=== PATIENT | male | born 1965 | race Caucasian/White ===

== ENCOUNTER → 2021-11-26 | Outpatient (CLI) | payer OTHER ==
[~2021-11-26] MED LIST: ALPR0.5T3 PO; BACL1TAB9 PO; BUPR150T12 PO; DULO1CAP6 PO; DULO30CA9 PO; GABA600T4 PO
== END ==
LOC: M LABSMTC 10:11
PROVIDERS: ATTEND Anesthesiology
DX: Z01.818 Encounter for other preprocedural examination (principal); Z11.52 Encounter for screening for COVID-19

== ENCOUNTER 2021-11-29 06:16 | Day surgery (SDC) | payer MEDICARE ==
[~2021-11-29] VITALS: Ht 177.8 cm; Wt 66.7 kg
[2021-11-29] MEDS ORDERED: ceFAZolin SOD 2 GM in IV 1 EA IV ONE (06:30)
[2021-11-29] MEDS ORDERED: LR 1,000 ML IV SCH ×2 (06:40→08:30)
[2021-11-29] MEDS ORDERED: LIDOCAINE 2% W/EPINEPHRINE 20ML VIAL **PRES FREE As Ordered ONE (07:11)
[2021-11-29] MEDS ORDERED: BACITRACIN OINTMENT 30GM TUBE As Ordered ONE (07:11)
[2021-11-29] MEDS ORDERED: MIDAZOLAM INJ 2MG/2ML VIAL (J2250 PER 1MG) As Ordered ONE (07:14)
[2021-11-29] MEDS ORDERED: fentaNYL 100 MCG/2 ML INJECTION As Ordered ONE (07:16)
[2021-11-29] MEDS ORDERED: POVIDONE-IODINE 5% OPHTH PREP SOL 30ML As Ordered ONE (07:16)
[2021-11-29] MEDS ORDERED: propofoL 200 MG/20 ML VIAL As Ordered ONE (07:17)
[2021-11-29] MEDS ORDERED: LIDOCAINE 2% 100MG/5ML SDV (FOR ANES.) As Ordered ONE (07:21)
[2021-11-29] MEDS ORDERED: SUCCINYLCHOLINE 100 MG/5 ML SYRINGE (J0330) As Ordered ONE (07:41)
[2021-11-29] MEDS ORDERED: ROCURONIUM BROMIDE 50 MG/5 ML VIAL As Ordered ONE (07:41)
[2021-11-29] MEDS ORDERED: PHENYLephrine 500MCG 5ML (100MCG/ML) SYRINGE As Ordered ONE (08:09)
[2021-11-29] MEDS ORDERED: fentaNYL 100 MCG/2 ML INJECTION IV PRN (08:30)
[2021-11-29] MEDS ORDERED: ONDANSETRON 4MG 2ML VIAL IV PRN (08:30)
[2021-11-29] MEDS ORDERED: oxyCODONE 5MG TAB PO PRN (08:30)
[2021-11-29] MEDS ORDERED: ALBUTEROL SULFATE 2.5 MG/0.5 ML INH NEB SOLN INH ONE (08:30)
[2021-11-29] MEDS ORDERED: METOCLOPRAMIDE INJ 10MG/2ML VIAL (J2765 PER 1) IV PRN (08:30)
[2021-11-29] MEDS ORDERED: HYDROMORPHONE HCL 0.5 MG/ 0.5 ML SYRINGE (J1170 PER 1) IV PRN (08:30)
[2021-11-29 09:15] VITALS: BP 115/79
== END 2021-11-29 09:40 | disposition home or self-care (01) ==
LOC: M SDC 06:16
PROVIDERS: ATTEND Plastic Surgery Surgery of the Hand
DX: L90.5 Scar conditions and fibrosis of skin (principal); L91.0 Hypertrophic scar; L57.8 Other skin changes due to chronic exposure to nonionizing radiation; W54.0XXS Bitten by dog, sequela; E78.5 Hyperlipidemia, unspecified; G62.9 Polyneuropathy, unspecified; F17.210 Nicotine dependence, cigarettes, uncomplicated
CPT/HCPCS: 13151; 88302; J0330; J0690; J2250; J2370; J3010